=== PATIENT | male | born 1975 | race Caucasian/White ===

== ENCOUNTER 2017-07-12 14:28 | Emergency (ER) | payer MEDICAID ==
[~2017-07-12] VITALS: Ht 172.7 cm; Wt 78.0 kg
[2017-07-12 14:35] VITALS: Ht 172.7 cm; Wt 78.0 kg
--- NOTE | 2017-07-12 15:36 | ERD ---
ER Documentation Chief Complaint Chief Complaint rt elbow swelling x 1 year , more painful x few days HPI 41-year-old male, right-handed, previously healthy, presents to the emergency department complaining of progressive swelling of his right elbow for 1 year, few days ago he hit his elbow and the area became mildly erythematous and tender to palpation. Denies fevers, chills, no shortness of breath, no rashes. ROS A 12-point review of systems was performed and negative other than presented in the history of present illness. SYSTEMIC symptoms: no fever, chills, no night sweats, no weight loss EYE symptoms: No blurred vision, no eye discharge OTOLARYNGEAL symptoms: No hearing loss. No ear pain, no sore throat CARDIOVASCULAR symptoms: No chest pain or discomfort, no palpitations. PULMONARY symptoms: No dyspnea, no cough, no wheezing. GASTROINTESTINAL symptoms: No abdominal pain, no nausea, no vomiting, no diarrhea MUSCULOSKELETAL symptoms: No arthralgias, no muscle aches. NEUROLOGY symptoms: No confusion, no syncope, no numbness or tingling. SKIN: No rashes Medications Home Meds Active Scripts Ibuprofen* (Ibuprofen*) 600 Mg Tablet, 600 MG PO Q8 for 3 Days, #15 TAB Prov:MARQUITA VALERIO MD 07/12/17 Sulfamethoxazole/Trimethoprim* (Bactrim Ds* Tablet) 1 Each Tablet, 1 TAB PO BID , #14 TAB Prov:MARQUITA VALERIO MD 07/12/17 Cephalexin* (Keflex*) 500 Mg Capsule, 500 MG PO BID for 7 Days, CAP Prov:MARQUITA VALERIO MD 07/12/17 Physical Exam Vitals Vital Signs Date Time Temp Pulse Resp B/P Pulse Ox O2 Delivery O2 Flow Rate FiO2 07/12/17 14:35 97.8 89 18 140/78 98 Physical Exam Patient is in no acute distress, vital signs stable. Alert and fully oriented. EYES: PERRLA, EOMI, Sclera and conjunctiva appear normal. EARS: Canals clear, tympanic membranes WNL THROAT: Normal oropharynx. NECK: Supple, No lymphadenopathy. Full ROM without pain or tenderness. HEART: RRR, no rubs, murmurs, clicks or gallops. LUNGS: Clear to auscultation. ABDOMEN: Soft, non-tender without masses or hepatosplenomegaly. EXTREMITIES: Right elbow: Inspection: Mild erythema, minimal tenderness to palpation, no warmth BACK: Full ROM, no deformity, normal back exam NEURO: Cranial nerves grossly intact, no motor or sensory deficit Results 24 hrs Current Medications Medications (Trade) Dose Ordered Sig/Oswaldo Route PRN Reason Start Time Stop Time Status Last Admin Dose Admin Prednisone (Prednisone) 40 mg ONCE ONCE PO 07/12/17 17:00 12 17:01 Clindamycin Phosphate (Cleocin) 600 mg ONCE ONCE IM 07/12/17 17:00 07/12/17 17:01 Procedures/MDM 41-year-old male, previously healthy, presents to the emergency department for evaluation of one-year right elbow swelling Vital signs stable, Physical exam revealed a right elbow with effusion, with erythema and mild warmth. Differential diagnosis include but not limited to: Cellulitis, abscess, fracture , dislocation. Low suspicion for acute systemic process, septic arthritis. Physical examination and clinical presentation consistent most likely with infected right elbow effusion. During the ED course the patient remained stable, no new complaints. Aspiration and Drainage with irrigation by me: Location: Right elbow Anesthesia: Local 1% Lidocaine without epinephrine Technique: Aspiration with 18-gauge needle Packing: None Complications: Neurovascularly intact post procedure 48 hour wound check. Scar minimization instructions given. Results and clinical impression discussed with who agrees with management. The patient is stable to be treated outpatient and will be discharged home with a Rx for cephalexin, Bactrim and ibuprofen, some side effects of prescribed medications (headache, rash, nausea, vomiting, diarrhea, drowsiness, habituation , bleeding, hypertension, interactions with other medications) were reviewed. The patient was instructed to follow up with the primary care provider in the next 48h. If symptoms persist, worsen or new symptoms develop, then patient should return to the ED immediately. Instructions explained and given directly by me to the patient in Cymro with acknowledgment and demonstrated understanding. Disclaimer: Inadvertent spelling and grammatical errors are likely due to EHR/ dictation software use and do not reflect on the overall quality of patient care. Also, please note that the electronic time recorded on this note does not necessarily reflect the actual time of the patient encounter. Departure Diagnosis: Primary Impression: Effusion of bursa of left elbow Condition: Stable Additional Instructions: Call your primary care doctor TOMORROW for an appointment during the next 1-2 days. See the doctor sooner or return here if your condition worsens before your appointment time. Thank you very much for allowing us to participate in your care. Your health and safety is our top priority at [facility]. Have prescriptions filled and follow precisely the directions on the label. Follow-up with primary care provider during the next 4 days and bring all the information and medications prescribed. If illness has not improved in 2 days, then make an appointment with primary care provider. If the provider is unavailable, return to the Emergency Department immediately. MARQUITA VALERIO MD Jul 12, 2017 15:36 MARQUITA VALERIO MD Jul 12, 2017 15:36
[2017-07-12] MEDS ORDERED: SULF1TAB31 PO (16:39)
[2017-07-12] MEDS ORDERED: CEPH-443 PO (16:39)
[2017-07-12] MEDS ORDERED: IBUP-1542 PO (16:41)
[2017-07-12] MEDS ORDERED: CLINDAMYCIN 300 MG INJ IM ONE (17:00)
[2017-07-12] MEDS ORDERED: predniSONE 20 MG TAB PO ONE (17:00)
== END 2017-07-12 17:53 | disposition home or self-care (01) ==
LOC: FTE 14:28
DX: M25.422 Effusion, left elbow (principal)
CPT/HCPCS: 20605; 96372; J7512; Z7502; Z7610